=== PATIENT | female | born 1995 | race Caucasian/White ===

== ENCOUNTER 2018-11-29 04:16 | Observation (INO) ==
[2018-11-29 05:40] LABS: Amphetamine Screen,Urine Negative ng/mL (Cutoff=1000); Barbiturate Screen,Urine Negative ng/mL (Cutoff=200); Benzodiazepines Screen,Urine Negative ng/mL (Cutoff=200); Cannabinoid Screen,Urine Negative ng/mL (Cutoff = 50); Cocaine Screen,Urine Negative ng/mL (Cutoff= 300); Opiate Screen,Urine Negative ng/mL (Cutoff=300); Phencyclidine Screen,Urine Negative ng/mL (Cutoff=25)
[2018-11-29 05:44] LABS: Bilirubin,Urine Negative (Negative); Blood,Urine Moderate (Negative); Clarity,Urine Cloudy (Clear); Color,Urine Yellow (Yellow); Glucose,Urine (UA) Normal (Normal); Ketones,Urine Negative (Negative); Leukocyte Esterase,Urine Trace (Negative); Nitrite,Urine Negative (Negative); PH,Urine 6.5 pH Units (5.0-8.0); Protein,Urine Trace mg/dL (Neg-Trace); Urobilinogen,Urine Normal (Normal)
[2018-11-29 05:47] LABS: Bacteria,Urine Few per hpf (None-Few); Hyaline Casts,Urine None Seen per lpf (None-Few); RBC,Urine 0-3 per hpf (0-3); Squamous Epithelial Cell,Urine Many per lpf (None-Few)
[2018-11-29 05:57] LABS: Mucus,Urine Few (Few)
[2018-11-29] MEDS ORDERED: Azithromycin 250 MG TABLET PO ONE (06:33)
[2018-11-29] MEDS ORDERED: Ringers Solution, Lactated 1,000 ML IVC SCH (06:45)
[2018-11-29] MEDS ORDERED: Betamethasone Acet/SodPhos 6 MG/ML MDV IM SCH (06:45)
[2018-11-29 06:52] LABS: Basophils % 0.3 %; Eosinophils # 0.1 K/mcL (0.0-0.6); Eosinophils % 0.4 %; Hematocrit 42.5 % (35.3-44.9); Hemoglobin 14.3 g/dL (11.5-15.4); Immature Granulocytes % 0.6 % (0-4); Lymphocytes # 1.6 K/mcL (0.6-4.6); Lymphocytes % 11.6 %; Mean Corpuscular HGB Conc 33.6 g/dL (31.6-35.5); Mean Corpuscular Hemoglobin 29.1 pg (28.0-33.3); Mean Corpuscular Volume 86.4 fL (83.0-100.0); Mean Platelet Volume 10.7 fL (9.4-12.4); Monocytes # 0.5 K/mcL (0.0-1.3); Monocytes % 3.8 %; Neutrophils # 11.7 K/mcL (1.6-8.9); Platelet Count 200 K/mcL (140-400); Red Blood Count 4.92 M/mcL (3.82-4.97); Red Cell Distribution Width 13.2 % (11.5-14.5); Segmented Neutrophils % 83.3 %
--- NOTE | 2018-11-29 06:59 | OB/GYN History & Physical ---
Date of Encounter: 11/29/18 Time of Encounter: 06:52 Assessment and Plan (1) 24 weeks gestation of Current visit: Yes Status: Acute Patient admitted for observation Dr. Villafana Notified of patient status and POC (2) premature rupture of membranes Current visit: Yes Status: Acute [facility] transfer accepted by Dr. Welch Ampicillin 2 grams IV started Azythromycin 1 gram PO give Betamethasone give IM CBC collected with LR infusing Qualifiers: PROM onset of labor timing: unspecified duration between rupture of membranes and onset of labor Qualified Code(s): O42.919 - premature rupture of membranes, unspecified as to length of time between rupture and onset of labor, unspecified trimester History of Present Illness Chief complaint: PPROM HPI: Ms. Orona is a 23 year old female at 24 w2d presents to labor and delivery with complaints of Leaking of fluid. Ms. Orona reports around 0300 she woke up feeling like she was leaking. A moderate amount of fluid was noted on her bed. Patient reports she thought is was urine however, the leaking did not stop. Patient denies any abdominal pain or cramping. Patient denies any bleeding but does report some brown discharge. Patient denies any complications with . care was through Dr. Penn. Blood type: O Positive Rubella: Immune Hep B: Nonreactive HIV: No reactive Hep C: nonreactice Past Med Surg Social Fam HX - Past Medical History Source: patient Medical history: non-contributory Psychiatric history: anxiety, depression - Past Surgical History Surgical History: appendectomy - Social History Smoking Status: Never smoker Smokeless Tobacco Status: No Alcohol use: none Drug use: none Current living situation: Home - Independent Recent Out of Country Travel Within the Last 8 Weeks: No Exposure or Possible Exposure to Illness During Travel: No - Family History Mother Age: 57 Living Status: Still Living Hx Family Cardiac Disorders: Yes (htn) Hx Family Respiratory Disorders: No Hx Family Cancer: No Hx Family GI Disorders: No Hx Family Genitourinary Disorders: No Hx Family Endocrine Disorder: No Hx Family Musculoskeletal Disorders: No Hx Family Neuromuscular Disorders: No Hx Family Neurologic Disorders: No Hx Family HEENT Disorders: No Hx Family Autoimmune Disorders: No Hx Family Reproductive Disorders: No Hx Family Psychosocial Disorders: Yes (depression) Hx Family Medical Disorders: No Obstetrical History - Pregnancies : 1 Para: 0 Term: 0 : 0 Ab's: 0 Livin Medications and Allergies Formula Tablet 1 tab PO DAILY 11/29/18 [History] Zoloft 10 mg PO DAILY 11/29/18 [History] Allergy/AdvReac Type Severity Reaction Status Date / Time No Known Allergies Allergy Verified 08/26/17 19:53 Review of System OB - Constitutional Constitutional ROS IM: no chills, no fever(s), no headache(s) - Cardiovascular Cardiovascular: no chest pain, no lightheadedness, no palpitations, no syncope - Respiratory Respiratory: no cough - Gastrointestinal Gastrointestinal: no abdominal pain, no cramping, no diarrhea, no heartburn, no nausea, no vomiting - Genitourinary Genitourinary: vaginal discharge (Per HPI), no abnormal vaginal bleeding, no dysuria, no flank pain, no urinary frequency, no urinary urgency, no vaginal odor, no vaginal pruritis Exam - Constitutional Constitutional: well developed, well nourished, no acute distress, thin - HEENT HEENT: Normocephaly, Mucus Membranes Moist - Neck Neck exam: full ROM, supple - Lungs Respiratory exam: CTAB - Cardiovascular Cardiovascular exam: RRR, +S1, +S2 - Abdomen Abdomen: Present: bowel sounds normal, gravid, non tender - Extremities Extremities exam: full ROM, normal inspection Deep Tendon Reflex Grade: 2+ Normal - Cervix Dilation: 0 Effacement: 50 Station: -3 - Uterus Uterus exam: Present: normal size, normal contour - Anus/Rectum Anus/Rectum: Present: normal perianal skin - Comments Comments: Speculum exam: Large amount of clear fluid pooling in the speculum. Cervix appears to be closed. FERN test positive. SVE: closed/50/-3 FHR 150 bpm appropriate for gestational age. Occasional variable noted Results Abnormal lab results Urine Clarity Cloudy (Clear) A 11/29/18 05:02 Urine Blood Moderate (Negative) H 11/29/18 05:02 Ur Leukocyte Esterase Trace (Negative) H 11/29/18 05:02 Urine Microscopic WBC 3-5 per hpf (0-3) H 11/29/18 05:02 Ur Squamous Epith Cells Many per lpf (None-Few) H 11/29/18 05:02 Ur Culture Indicated? NO. (NO) A 11/29/18 05:02 All other labs normal. - VTE Reasons for not Prescribing Prophylaxis: Treatment not Indicated - Low risk for VTE
[2018-11-29] MEDS ORDERED: Ampicillin 2 GM in 0.9 % Sodium Chloride Mini Bag 100 ML IVPB SCH (07:00)
--- NOTE | 2018-11-29 07:09 | Discharge Summary ---
Date of Encounter: 11/29/18 Time of Encounter: 07:08 - Discharge Diagnosis (1) 24 weeks gestation of Priority: Secondary Status: Acute (2) premature rupture of membranes Priority: Primary Status: Acute Comments: awaiting transfer to [facility] Qualifiers: PROM onset of labor timing: unspecified duration between rupture of membranes and onset of labor Qualified Code(s): O42.919 - premature rupture of membranes, unspecified as to length of time between rupture and onset of labor, unspecified trimester - Discharge Medications Home Medications: Formula Tablet 1 tab PO DAILY 11/29/18 [History] Zoloft 10 mg PO DAILY 11/29/18 [History] Allergies/Adverse Reactions: Allergy/AdvReac Type Severity Reaction Status Date / Time No Known Allergies Allergy Verified 08/26/17 19:53 Data Procedures and tests throughout hospitalization: Laboratory Tests 11/29/18 11/29/18 11/29/18 05:02 05:02 06:36 WBC 14.0 H RBC 4.92 Hgb 14.3 Hct 42.5 MCV 86.4 MCH 29.1 MCHC 33.6 RDW 13.2 Plt Count 200 MPV 10.7 Immature Gran % 0.6 Seg Neutrophils % 83.3 Lymphocytes % 11.6 Monocytes % 3.8 Eosinophils % 0.4 Basophils % 0.3 Neutrophils # 11.7 H Lymphocytes # 1.6 Monocytes # 0.5 Eosinophils # 0.1 Basophils # 0.0 Urine Color Yellow Urine Clarity Cloudy A Urine pH 6.5 Ur Specific Hyden 1.020 Urine Protein Trace Urine Glucose (UA) Normal Urine Ketones Negative Urine Blood Moderate H Urine Nitrite Negative Urine Bilirubin Negative Urine Urobilinogen Normal Ur Leukocyte Esterase Trace H Urine Microscopic RBC 0-3 Urine Microscopic WBC 3-5 H Ur Squamous Epith Cells Many H Urine Bacteria Few Hyaline Casts None Seen Urine Mucus Few Ur Culture Indicated? NO. A Urine Opiates Screen Negative Ur Barbiturates Screen Negative Ur Phencyclidine Scrn Negative Ur Amphetamines Screen Negative U Benzodiazepines Scrn Negative Urine Cocaine Screen Negative U Marijuana (THC) Screen Negative Ur Drug Screen Interp See Below Labs on day of discharge: Labs from last 24 hours 11/29/18 11/29/18 11/29/18 06:36 05:02 05:02 WBC 14.0 H RBC 4.92 Hgb 14.3 Hct 42.5 MCV 86.4 MCH 29.1 MCHC 33.6 RDW 13.2 Plt Count 200 MPV 10.7 Immature Gran % 0.6 Seg Neutrophils % 83.3 Lymphocytes % 11.6 Monocytes % 3.8 Eosinophils % 0.4 Basophils % 0.3 Neutrophils # 11.7 H Lymphocytes # 1.6 Monocytes # 0.5 Eosinophils # 0.1 Basophils # 0.0 Urine Color Yellow Urine Clarity Cloudy A Urine pH 6.5 Ur Specific Hyden 1.020 Urine Protein Trace Urine Glucose (UA) Normal Urine Ketones Negative Urine Blood Moderate H Urine Nitrite Negative Urine Bilirubin Negative Urine Urobilinogen Normal Ur Leukocyte Esterase Trace H Urine Microscopic RBC 0-3 Urine Microscopic WBC 3-5 H Ur Squamous Epith Cells Many H Urine Bacteria Few Hyaline Casts None Seen Urine Mucus Few Ur Culture Indicated? NO. A Urine Opiates Screen Negative Ur Barbiturates Screen Negative Ur Phencyclidine Scrn Negative Ur Amphetamines Screen Negative U Benzodiazepines Scrn Negative Urine Cocaine Screen Negative U Marijuana (THC) Screen Negative Ur Drug Screen Interp See Below Date of admission: 11/29/18 04:16 Discharging clinician: Carmen Gómez Anticipated date of discharge: 11/29/18 - Patient Status Disposition: Transfer Critical Access Hosp Condition: Good Functional capacity at discharge: independent ambulation - Discharge Instructions Follow Up With: Yanira Penn MD [Partnered Physician] - Hospital Course [employer] Time Attestation: Total time spent providing and/or coordinating discharge services: Time Spent: Less than 30 minutes - VTE Reasons for not Prescribing Prophylaxis: Treatment not Indicated - Low risk for VTE
== END 2018-11-29 07:34 | disposition critical access hospital (66) ==
LOC: 1NENULAB
PROVIDERS: ADMIT Advanced Practice Midwife; ATTEND Advanced Practice Midwife